=== PATIENT | male | born 1970 | race Caucasian/White ===

== ENCOUNTER 2023-04-04 18:54 | Inpatient (IN) ==
[2023-04-04] MEDS ORDERED: ONDANSETRON INJ 2 MG/ML 2 ML VIAL IV STA (19:03)
[2023-04-04 19:46] LABS: Basophils # (auto) 0.03 K/uL (0-0.2); Basophils % (auto) 0.2 %; Eosinophils # (auto) 0.03 K/uL (0-0.50); Eosinophils % (auto) 0.2 %; Hematocrit (blood only) 43.7 % (42.0-52.0); Hemoglobin 15.6 g/dl (14.0-18.0); Immature Granulocytes # (auto) 0.07 K/uL (0.01-0.20); Immature Granulocytes % (auto) 0.4 %; Lymphocytes % (auto) 12.2 %; Mean Corpuscular Hemoglobin 32.3 pg (25.0-34.0); Mean Corpuscular Hgb Conc 35.7 g/dL (32.0-36.0); Mean Corpuscular Volume 90.5 fL (80.0-100.0); Monocytes # (auto) 1.54 K/uL (0.11-0.59); Monocytes % (auto) 9.9 %; Neutrophils # (auto) 12.04 K/uL (1.40-6.50); Neutrophils % (auto) 77.1 %; Platelet Count 200 K/uL (130-400); Red Blood Count 4.83 M/uL (4.70-6.10); White Blood Count 15.61 K/ul (4.8-10.8)
[2023-04-04 20:07] LABS: Troponin I High Sensitivity 4.2 pg/ml (0-20)
[2023-04-04 20:08] LABS: Albumin Globulin Ratio 1.4 (0.9-2); Albumin Level 4.8 gm/dl (3.4-5.0); BUN Creatinine Ratio 13.8 (10-20); Calcium 9.3 mg/dl (8.6-10.3); Creatinine Clr Calc Pharmacy 119.3 ml/min; Est GFR (African American) 115.8 ml/min; Est GFR (Non-African American) 99.9 ml/min; Globulin 3.5 gm/dl (2.5-4.0); Magnesium 2.1 mg/dl (1.7-2.4); Potassium 3.3 mmol/L (3.5-5.1); Total Protein 8.3 gm/dl (6.0-8.3)
[2023-04-04 20:09] LABS: Partial Thromboplastin Time 28.4 Seconds (21.0-31.0); Prothrombin Time 10.6 Seconds (9.0-12.0)
[2023-04-04] MEDS ORDERED: HYDROmorphone INJ 0.5 MG/0.5 ML SYR IV STA (20:25)
[2023-04-04] MEDS ORDERED: SODIUM CHLORIDE 0.9% 1000ML 1,000 ML IV ONE (20:25)
--- NOTE | 2023-04-04 20:28 | XRay Report ---
XR chest 1V not portable CLINICAL HISTORY: Sepsis TECHNIQUE: Single frontal radiograph of the chest was obtained. Comparison: Comparison is made to chest radiograph 04/03/2023 FINDINGS: No lines and tubes are seen. The cardiomediastinal silhouette is normal. The lungs are clear. No evid ence of pleural effusion or pneumothorax. IMPRESSION: No acute abnormalities and in particular no radiographic evidence of pneumonia. ACT 112: Negative or not required by law. Electronically signed by: Chandler Lowe M.D. 04/04/2023 8:27 PM
--- NOTE | 2023-04-04 20:31 | Emergency Department Note ---
History of Present Illness General Chief complaint: Flu Like Symptoms Stated complaint: SWELLING TO NECK, FEVER, VOMITING Time Seen by Provider: 04/04/23 20:15 Source: patient, RN notes reviewed, old records reviewed and other (I did discuss the case with Dr. Comer who saw the patient yesterday) Mode of arrival: ambulatory Limitations: no limitations History of Present Illness Maximum Pain Intensity: 8 This patient is a 53-year-old male who returns to the ER after having fever increasing pain. He was seen yesterday and a full cardiac work-up and had right shoulder pain he had a CAT scan of the shoulder which suggested some bursitis. Is put on antibiotics. Today he has had a couple episodes of vomiting he feels okay in that regard now but now is more pain he is feels like his pain on the right side of the neck no shortness of breath no difficulty swallowing or speaking no rash or itching. He has no known tick bites. He was unable to hold his medications down. No headache or neck stiffness Home Medications Medication Instructions Recorded Confirmed Type aspirin 81 mg tablet,delayed 81 mg PO DAILY 10/01/19 04/04/23 History release fexofenadine 180 mg tablet 180 mg PO DAILY 10/01/19 04/04/23 History (Alana Allergy) multivitamin 1 tab PO DAILY 10/01/19 04/04/23 History omega 3-fsi-ckj-fish oil 1,000 mg 1 cap PO DAILY 10/01/19 04/04/23 History (120 mg-180 mg) capsule (Fish Oil) cephalexin 500 mg capsule 500 mg PO QID 9 days #36 caps 04/03/23 04/04/23 Rx hydrocodone 5 mg-acetaminophen 325 1 - 2 tab PO Q6H PRN pain #10 tabs 04/03/23 04/04/23 Rx mg tablet Allergies Allergy/AdvReac Type Severity Reaction Status Date / Time No Known Allergies Allergy NONE Unverified 04/03/23 15:43 Past Med/Surg History Surgical History H/O hernia repair Family History Other Cancer Diabetes Gallbladder disease Heart disease Hypertension Kidney disease Lung disease Multiple sclerosis Seizure Social History Smoking Status: Former smoker Second Hand Exposure: No; Do You Dip or Chew Tobacco: No; Tobacco Cessation Education Requested by Patient: No Hx Alcohol Use: Yes Hx Substance Use: Yes Last Used Substance: Days (ago) Last Used Substance Other:: 04/03/2023 Preferred Language: Kazakh Communication Ability: Effective Product Mgmt Dev Manager Required: No Beliefs That Will Affect Care: None Current Living Situation: Significant Other Other Information That Helps Us Care for You: No Feels Safe at Home: Yes Safety Concerns: Feels Safe At This Time Assistive Devices: None Review of Systems A total of 10 systems reviewed and were otherwise negative Physical Exam Vital Signs Vital Signs - 24 hr 04/04/23 18:59 04/04/23 20:02 04/04/23 20:35 Temperature 37.2 C 36.9 C Temperature Source Oral Oral Pulse Rate 109 H 86 Pulse Rate from SpO2 Sensor Pulse Rhythm Regular Pulse Strength Normal Respiratory Rate 20 17 Respiratory Effort / Characteristics Non-Labored Spontaneous Non-Labored Spontaneous Respiratory Depth Normal Normal Respiratory Pattern Regular Regular Blood Pressure 163/99 H Blood Pressure [Right Arm] 158/97 H Blood Pressure Mean 120 Blood Pressure Mean [Right Arm] 117 Blood Pressure Position Sitting Pulse Oximetry 96 97 Oxygen Delivery Method Room Air Room Air Sepsis Recent Fever Within 48 Hours Yes Sepsis New/Unexplained Change in Mental Status N/A Sepsis Action Taken by Nursing No Action Required 04/04/23 20:05 04/04/23 20:10 04/04/23 20:20 Temperature Temperature Source Pulse Rate 83 81 92 H Pulse Rate from SpO2 Sensor 84 81 89 Pulse Rhythm Pulse Strength Respiratory Rate 16 15 15 Respiratory Effort / Characteristics Respiratory Depth Respiratory Pattern Blood Pressure Blood Pressure [Right Arm] Blood Pressure Mean Blood Pressure Mean [Right Arm] Blood Pressure Position Pulse Oximetry 95 95 96 Oxygen Delivery Method Sepsis Recent Fever Within 48 Hours Sepsis New/Unexplained Change in Mental Status Sepsis Action Taken by Nursing 04/04/23 20:30 04/04/23 20:30 04/04/23 20:40 Temperature Temperature Source Pulse Rate 84 87 Pulse Rate from SpO2 Sensor 84 85 Pulse Rhythm Pulse Strength Respiratory Rate 19 23 Respiratory Effort / Characteristics Respiratory Depth Respiratory Pattern Blood Pressure 174/112 H Blood Pressure [Right Arm] Blood Pressure Mean 132 Blood Pressure Mean [Right Arm] Blood Pressure Position Pulse Oximetry 96 94 Oxygen Delivery Method Sepsis Recent Fever Within 48 Hours Sepsis New/Unexplained Change in Mental Status Sepsis Action Taken by Nursing 04/04/23 20:50 04/04/23 21:00 04/04/23 21:00 Temperature Temperature Source Pulse Rate 83 79 Pulse Rate from SpO2 Sensor 83 79 Pulse Rhythm Pulse Strength Respiratory Rate 14 20 Respiratory Effort / Characteristics Respiratory Depth Respiratory Pattern Blood Pressure 156/104 H Blood Pressure [Right Arm] Blood Pressure Mean 121 Blood Pressure Mean [Right Arm] Blood Pressure Position Pulse Oximetry 92 94 Oxygen Delivery Method Sepsis Recent Fever Within 48 Hours Sepsis New/Unexplained Change in Mental Status Sepsis Action Taken by Nursing 04/04/23 21:10 04/04/23 21:20 04/04/23 21:36 Temperature Temperature Source Pulse Rate 76 74 83 Pulse Rate from SpO2 Sensor 78 72 Pulse Rhythm Pulse Strength Respiratory Rate 20 13 23 Respiratory Effort / Characteristics Respiratory Depth Respiratory Pattern Blood Pressure Blood Pressure [Right Arm] Blood Pressure Mean Blood Pressure Mean [Right Arm] Blood Pressure Position Pulse Oximetry 95 95 Oxygen Delivery Method Sepsis Recent Fever Within 48 Hours Sepsis New/Unexplained Change in Mental Status Sepsis Action Taken by Nursing 04/04/23 21:40 04/04/23 21:50 04/04/23 22:00 Temperature Temperature Source Pulse Rate 72 75 Pulse Rate from SpO2 Sensor Pulse Rhythm Pulse Strength Respiratory Rate 20 17 Respiratory Effort / Characteristics Respiratory Depth Respiratory Pattern Blood Pressure 141/92 H Blood Pressure [Right Arm] Blood Pressure Mean 108 Blood Pressure Mean [Right Arm] Blood Pressure Position Pulse Oximetry Oxygen Delivery Method Sepsis Recent Fever Within 48 Hours Sepsis New/Unexplained Change in Mental Status Sepsis Action Taken by Nursing 04/04/23 22:00 04/04/23 22:10 04/04/23 22:20 Temperature Temperature Source Pulse Rate 73 70 81 Pulse Rate from SpO2 Sensor Pulse Rhythm Pulse Strength Respiratory Rate 16 16 16 Respiratory Effort / Characteristics Respiratory Depth Respiratory Pattern Blood Pressure Blood Pressure [Right Arm] Blood Pressure Mean Blood Pressure Mean [Right Arm] Blood Pressure Position Pulse Oximetry Oxygen Delivery Method Sepsis Recent Fever Within 48 Hours Sepsis New/Unexplained Change in Mental Status Sepsis Action Taken by Nursing 04/04/23 22:30 04/04/23 23:00 Temperature Temperature Source Pulse Rate 69 83 Pulse Rate from SpO2 Sensor Pulse Rhythm Pulse Strength Respiratory Rate 14 21 Respiratory Effort / Characteristics Respiratory Depth Respiratory Pattern Blood Pressure 138/87 158/100 H Blood Pressure [Right Arm] Blood Pressure Mean 104 119 Blood Pressure Mean [Right Arm] Blood Pressure Position Pulse Oximetry Oxygen Delivery Method Sepsis Recent Fever Within 48 Hours Sepsis New/Unexplained Change in Mental Status Sepsis Action Taken by Nursing General: Well developed well nourished middle-age male who appears in no acute distress, breathing comfortably on room air. Normal speech HEENT: Normal cephalic atraumatic. Pupils are equal round and reactive to light. Extraocular movements are intact. Oropharynx is pink with moist mucous membranes. No swelling of the mouth lips or tongue. No posterior oropharyngeal swelling. Neck: Supple with a midline trachea. No meningeal signs or stiffness, no JVD or bruits. No Stridor.. There is some mild swelling at the base of the neck more so on the right. No stridor. Chest: Clear to auscultation bilaterally. No wheezes or rhonchi. No increased work of breathing. Heart: Regular rate and rhythm without murmurs or gallops. Abdomen: Soft nontender, nondistended without rebound guarding or rigidity. Extremities: No cyanosis clubbing or edema. No calf tenderness or assymetry. He has significant pain with movement of the shoulder Spine/Back. Non tender to palpation. No CVA tenderness Skin: Good turgor without rashes. Neurologic exam: Cranial nerves two through 12 are intact. Motor and sensation are intact and symmetrical throughout. Course Administered Medications Potassium Chloride/Sodium Chloride (Normal Saline W/20 Meq Kcl) 20 meq in 1,000 mls @ 75 mls/hr IV .[id number] ONE; Protocol Stop: 04/05/23 11:42 Last Admin: 04/04/23 22:56 Dose: 75 mls/hr Documented By: MINDY Daptomycin 450 mg/ Syringe 9 mls @ 4.5 mls/min IV Q24H [facility]; Protocol Stop: 05/16/23 23:29 Last Admin: 04/04/23 23:57 Dose: 4.5 mls/min Documented By: INDIRA Ibuprofen (Ibuprofen 200 Mg Tab) 200 mg PO Q6H PRN PRN Reason: Mild Pain (Scale 1, 2, 3) Stop: 05/04/23 23:08 Last Admin: 04/05/23 00:30 Dose: 200 mg Documented By: INDIRA Oxycodone HCl (Oxycodone Hcl Ir 5 Mg Tab (Immediate Release)) 5 mg PO Q4H PRN PRN Reason: Pain Stop: 04/18/23 23:08 Last Admin: 04/05/23 00:06 Dose: 5 mg Documented By: DLLarry Discontinued Medications Hydromorphone HCl (Hydromorphone Inj 0.5 Mg/0.5 Ml Syr) 0.5 mg IV NOW STA Stop: 04/04/23 20:26 Last Admin: 04/04/23 20:44 Dose: 0.5 mg Documented By: MINDY Sodium Chloride (Nss 1000ml) 1,000 mls @ 999 mls/hr IV .Q1H1M ONE Stop: 04/04/23 21:25 Last Infusion: 04/04/23 21:46 Dose: 0 mls/hr Documented By: Admin: 04/04/23 20:44 Dose: 999 mls/hr Documented By: MINDY Ceftriaxone Sodium (Rocephin) 2,000 mg in 70 mls @ 140 mls/hr IV NOW STA Stop: 04/04/23 21:03 Last Infusion: 04/04/23 21:14 Dose: 0 mls/hr Documented By: Admin: 04/04/23 20:44 Dose: 140 mls/hr Documented By: MINDY Cefepime HCl (Maxipime) 2,000 mg in 20 mls @ 5 mls/min IV NOW STA; Protocol Stop: 04/04/23 23:09 Last Admin: 04/04/23 23:30 Dose: 5 mls/min Documented By: BRANDON Ioversol (Optiray 320 100ml) 94 ml IV ONCE ONE Stop: 04/04/23 21:48 Last Admin: 04/04/23 21:37 Dose: 94 ml Documented By: PAUL Ketorolac Tromethamine (Ketorolac Tromethamine 15 Mg/Ml Vial) 10 mg IV NOW ONE Stop: 04/04/23 20:51 Last Admin: 04/04/23 20:56 Dose: 10 mg Documented By: MINDY Ondansetron HCl (Ondansetron Inj 2 Mg/Ml 2 Ml Vial) 4 mg IV NOW STA Stop: 04/04/23 19:04 Last Admin: 04/04/23 19:23 Dose: 4 mg Documented By: NOEMY Potassium Chloride (Potassium Chloride Crtab 20 Meq Tabcr) 20 meq PO NOW STA Stop: 04/04/23 22:24 Last Admin: 04/04/23 22:56 Dose: 20 meq Documented By: MINDY Medical Decision Making Differential Diagnosis Sepsis, infection, electrolyte or metabolic abnormality, airway compromise, abscess, tickborne illness Medical Records Attestation: I reviewed the patient's medical records. Home Medications Current Medication List: was personally reviewed by me Laboratory Data 04/04/23 19:11 04/04/23 19:11 Lab Results 04/04/23 04/04/23 04/04/23 Range/Units 19:11 19:11 19:11 WBC 15.61 H (4.8-10.8) K/ul RBC 4.83 (4.70-6.10) M/uL Hgb 15.6 (14.0-18.0) g/dl Hct 43.7 (42.0-52.0) % MCV 90.5 (80.0-100.0) fL MCH 32.3 (25.0-34.0) pg MCHC 35.7 (32.0-36.0) g/dL RDW Std Deviation 43.0 (36.4-46.3) fL RDW Coeff of Amol 13.0 (11.5-14.5) % Plt Count 200 (130-400) K/uL MPV 10.0 (9.4-12.4) fL Immature Gran % (Auto) 0.4 % Neut % (Auto) 77.1 % Lymph % (Auto) 12.2 % [place] % (Auto) 9.9 % Eos % (Auto) 0.2 % Baso % (Auto) 0.2 % Neut # (Auto) 12.04 H (1.40-6.50) K/uL Lymph # (Auto) 1.90 (1.2-3.4) K/uL [place] # (Auto) 1.54 H (0.11-0.59) K/uL Eos # (Auto) 0.03 (0-0.50) K/uL Baso # (Auto) 0.03 (0-0.2) K/uL Immature Gran # (Auto) 0.07 (0.01-0.20) K/uL PT 10.6 (9.0-12.0) Seconds INR 1.0 (0.9-1.1) APTT 28.4 (21.0-31.0) Seconds PTT Ratio 1.0 Sodium (136-145) mmol/L Potassium (3.5-5.1) mmol/L Chloride (98-107) mmol/L Carbon Dioxide (21-32) mmol/L Anion Gap (3-11) BUN (6-23) mg/dl Creatinine (0.6-1.4) mg/dl Est Cr Clr Drug Dosing ml/min Est GFR ( Amer) ml/min Est GFR (Non-Af Amer) ml/min BUN/Creatinine Ratio (10-20) Glucose (70-99(Fasting)) mg/dl Lactate 1.3 (0.4-2.0) mmol/L Calcium (8.6-10.3) mg/dl Magnesium (1.7-2.4) mg/dl Total Bilirubin (0.2-1.0) mg/dl AST (13-39) U/L ALT (7-52) U/L Alkaline Phosphatase (34-104) U/L Troponin I High Sens (0-20) pg/ml Total Protein (6.0-8.3) gm/dl Albumin (3.4-5.0) gm/dl Globulin (2.5-4.0) gm/dl Albumin/Globulin Ratio (0.9-2) Procalcitonin (0-0.5) ng/ml Lyme Disease IgG Ab (Negative) Lyme Disease IgM Ab (Negative) Group A Strep (PCR) (NotDetected) 04/04/23 04/04/23 04/04/23 Range/Units 19:11 19:11 19:11 WBC (4.8-10.8) K/ul RBC (4.70-6.10) M/uL Hgb (14.0-18.0) g/dl Hct (42.0-52.0) % MCV (80.0-100.0) fL MCH (25.0-34.0) pg MCHC (32.0-36.0) g/dL RDW Std Deviation (36.4-46.3) fL RDW Coeff of Amol (11.5-14.5) % Plt Count (130-400) K/uL MPV (9.4-12.4) fL Immature Gran % (Auto) % Neut % (Auto) % Lymph % (Auto) % [place] % (Auto) % Eos % (Auto) % Baso % (Auto) % Neut # (Auto) (1.40-6.50) K/uL Lymph # (Auto) (1.2-3.4) K/uL [place] # (Auto) (0.11-0.59) K/uL Eos # (Auto) (0-0.50) K/uL Baso # (Auto) (0-0.2) K/uL Immature Gran # (Auto) (0.01-0.20) K/uL PT (9.0-12.0) Seconds INR (0.9-1.1) APTT (21.0-31.0) Seconds PTT Ratio Sodium 137 (136-145) mmol/L Potassium 3.3 L (3.5-5.1) mmol/L Chloride 104 (98-107) mmol/L Carbon Dioxide 22 (21-32) mmol/L Anion Gap 11 (3-11) BUN 12 (6-23) mg/dl Creatinine 0.87 (0.6-1.4) mg/dl Est Cr Clr Drug Dosing 119.3 ml/min Est GFR ( Amer) 115.8 ml/min Est GFR (Non-Af Amer) 99.9 ml/min BUN/Creatinine Ratio 13.8 (10-20) Glucose 131 H (70-99(Fasting)) mg/dl Lactate (0.4-2.0) mmol/L Calcium 9.3 (8.6-10.3) mg/dl Magnesium 2.1 (1.7-2.4) mg/dl Total Bilirubin 1.0 D (0.2-1.0) mg/dl AST 13 (13-39) U/L ALT 16 (7-52) U/L Alkaline Phosphatase 64 (34-104) U/L Troponin I High Sens 4.2 (0-20) pg/ml Total Protein 8.3 (6.0-8.3) gm/dl Albumin 4.8 (3.4-5.0) gm/dl Globulin 3.5 (2.5-4.0) gm/dl Albumin/Globulin Ratio 1.4 (0.9-2) Procalcitonin 0.05 (0-0.5) ng/ml Lyme Disease IgG Ab Negative (Negative) Lyme Disease IgM Ab Negative (Negative) Group A Strep (PCR) (NotDetected) 04/04/23 Range/Units 19:14 WBC (4.8-10.8) K/ul RBC (4.70-6.10) M/uL Hgb (14.0-18.0) g/dl Hct (42.0-52.0) % MCV (80.0-100.0) fL MCH (25.0-34.0) pg MCHC (32.0-36.0) g/dL RDW Std Deviation (36.4-46.3) fL RDW Coeff of Amol (11.5-14.5) % Plt Count (130-400) K/uL MPV (9.4-12.4) fL Immature Gran % (Auto) % Neut % (Auto) % Lymph % (Auto) % [place] % (Auto) % Eos % (Auto) % Baso % (Auto) % Neut # (Auto) (1.40-6.50) K/uL Lymph # (Auto) (1.2-3.4) K/uL [place] # (Auto) (0.11-0.59) K/uL Eos # (Auto) (0-0.50) K/uL Baso # (Auto) (0-0.2) K/uL Immature Gran # (Auto) (0.01-0.20) K/uL PT (9.0-12.0) Seconds INR (0.9-1.1) APTT (21.0-31.0) Seconds PTT Ratio Sodium (136-145) mmol/L Potassium (3.5-5.1) mmol/L Chloride (98-107) mmol/L Carbon Dioxide (21-32) mmol/L Anion Gap (3-11) BUN (6-23) mg/dl Creatinine (0.6-1.4) mg/dl Est Cr Clr Drug Dosing ml/min Est GFR ( Amer) ml/min Est GFR (Non-Af Amer) ml/min BUN/Creatinine Ratio (10-20) Glucose (70-99(Fasting)) mg/dl Lactate (0.4-2.0) mmol/L Calcium (8.6-10.3) mg/dl Magnesium (1.7-2.4) mg/dl Total Bilirubin (0.2-1.0) mg/dl AST (13-39) U/L ALT (7-52) U/L Alkaline Phosphatase (34-104) U/L Troponin I High Sens (0-20) pg/ml Total Protein (6.0-8.3) gm/dl Albumin (3.4-5.0) gm/dl Globulin (2.5-4.0) gm/dl Albumin/Globulin Ratio (0.9-2) Procalcitonin (0-0.5) ng/ml Lyme Disease IgG Ab (Negative) Lyme Disease IgM Ab (Negative) Group A Strep (PCR) NOT DETECTED (NotDetected) Imaging Data Attestation: I personally reviewed and interpreted this imaging study as follows: My Impression: Chest x-rayno acute infiltrate, failure, pneumothorax seen. Radiologist's Impression: Chest X-Ray 04/04/23 19:03 XR chest 1V not portable CLINICAL HISTORY: Sepsis TECHNIQUE: Single frontal radiograph of the chest was obtained. Comparison: Comparison is made to chest radiograph 04/03/2023 FINDINGS: No lines and tubes are seen. The cardiomediastinal silhouette is normal. The lungs are clear. No evidence of pleural effusion or pneumothorax. IMPRESSION: No acute abnormalities and in particular no radiographic evidence of pneumonia. ACT 112: Negative or not required by law. Electronically signed by: Chandler Lowe M.D. 04/04/2023 8:27 PM Soft Tissue Neck CT 04/04/23 20:25 Exam(s): CT NECK With Contrast IV Amt: 94 ml [id number] EXAM: CT Neck With Intravenous Contrast CLINICAL HISTORY: Reason for exam: rt sided swelling. TECHNIQUE: Axial computed tomography images of the neck with intravenous contrast. CTDI is 19.54 mGy and DLP is 568.28 mGy-cm. Automated exposure control was utilized for the study. A dose lowering technique was utilized adhering to the principles of ALARA. CONTRAST: Patient received 94 ml [id number] of IV contrast COMPARISON: None. FINDINGS: Oropharynx: Unremarkable. No significant tonsillar enlargement. No peritonsillar abscess. Hypopharynx: Unremarkable. Larynx: Unremarkable. Normal epiglottis. Trachea: Unremarkable. Retropharyngeal space: Unremarkable. Submandibular/parotid glands: Mildly enlarged submandibular glands. No salivary gland calculi are seen. Thyroid: Unremarkable. No enlarged or calcified nodules. Bones/joints: Degenerative change in the spine. No high-grade spinal canal stenosis. No acute fracture. Soft tissues: Unremarkable. Vasculature: No acute findings. Lymph nodes: Cervical lymphadenopathy. Sinuses: Mild mucosal thickening in the ethmoid sinuses. Lung apices: Unremarkable as visualized. IMPRESSION: 1. Mildly enlarged submandibular glands. This may represent infectious or inflammatory sialadenitis. Clinical correlation is recommended. 2. Cervical lymphadenopathy. This may be reactive. Bella metastasis and lymphoproliferative disease are not excluded. Clinical correlation is recommended. Electronically signed by: Maykel John MD 04/04/23 22:04 PM ECG Data Attestation: I personally reviewed and interpreted this ECG as follows: Indication: + chest pain Rate (beats per minute): 102 Rhythm: + sinus tachycardia ECG Intervals/blocks: + Right Bundle branch block, + Normal QT and + Normal [place] ECG [place]: + Normal ECG ST segments: + Normal ST segments ECG Findings: no PACs or no PVCs Comparison ECG Date: from (04/03/23) Change: no significant change MDM Narrative This patient comes in described above he had a full work-up yesterday for right shoulder pain was thought to have bursitis he has increasing pain he is also nausea vomiting he has some swelling at the base of his neck today as well. He may have a low-grade temperature. IV access was established and he was hydrated with IV normal sinus white count is now 15. I did give him Dilaudid 0.5 mg IV for pain. He is not nauseated at present. He has no significant electrolyte or metabolic abnormalities. I did add tickborne illness labs as well as COVID testing and CT of the neck. He was reassessed frequently. He also received IV Toradol. He received Rocephin 2 g IV he is feel a lot better after this. His CT of his neck shows some possible submandibular sialoadenitis and cervical lymph nodes. I do think he needs to be admitted/observed for pain management antibiotics and observation. He may need further work-up to get to the etiology of his symptoms. I have consulted Dr. Hoang and discussed at length with him and he saw the patient in ER for these measures Continuous cardiac monitoring: Orders were placed in EMR for continuous cardiac monitoring: Upon my evaluation patient noted to be in normal sinus rhythm with a rate of 85. Impression & Plan Sialadenitis, Acute pain of right shoulder, Adenopathy, cervical, Elevated WBC count Discharge Plan Visit Data Chief Complaint: Flu Like Symptoms Stated Complaint: SWELLING TO NECK, FEVER, VOMITING ED Provider: Devon Jennings Discharge Problem: Sialadenitis, Acute pain of right shoulder, Adenopathy, cervical, Elevated WBC count Patient Disposition: Admitted As Inpatient Discharge Instructions Interventions: ED Discharge Assessment Last Done: 04/04/23 23:43
[2023-04-04] MEDS ORDERED: cefTRIAXone SODIUM 2,000 MG/70 ML BAG IV STA (20:34)
[2023-04-04] MEDS ORDERED: KETOROLAC TROMETHAMINE 15 MG/ML VIAL IV ONE (20:50)
[2023-04-04 21:47] LABS: Lyme Ab IgG w/WB Rflx Negative (Negative); Lyme Ab IgM w/WB Rflx Negative (Negative)
[2023-04-04] MEDS ORDERED: OPTIRAY 320 100ml IV ONE (21:47)
--- NOTE | 2023-04-04 22:04 | CT Scan Report ---
Exam(s): CT NECK With Contrast IV Amt: 94 ml EXAM: CT Neck With Intravenous Contrast CLINICAL HISTORY: Reason for exam: rt sided swelling. TECHNIQUE: Axial computed tomography images of the neck with intravenous contrast. CTDI is 19.54 mGy and DLP is 568.28 mGy-cm. Automated exposure control was utilized for the study. A dose lowering technique was utilized adhering to the principles of ALARA. CONTRAST: Patient received 94 ml [id number] of IV contrast COMPARISON: None. FINDINGS: Oropharynx: Unremarkable. No significant tonsillar enlargement. No peritonsillar abscess. Hypopharynx: Unremarkable. Larynx: Unremarkable. Normal epiglottis. Trachea: Unremarkable. Retropharyngeal space: Unremarkable. Submandibular/parotid glands: Mildly enlarged submandibular glands. No salivary gland calculi are seen. Thyroid: Unremarkable. No enlarged or calcified nodules. Bones/joints: Degenerative change in the spine. No high-grade spinal canal stenosis. No acute fracture. Soft tissues: Unremarkable. Vasculature: No acute findings. Lymph nodes: Cervical lymphadenopathy. Sinuses: Mild mucosal thickening in the ethmoid sinuses. Lung apices: Unremarkable as visualized. IMPRESSION: 1. Mildly enlarged submandibular glands. This may represent infectious or inflammatory sialadenitis. Clinical correlation is recommended. 2. Cervical lymphadenopathy. This may be reactive. [place] metastasis and lymphoproliferative disease are not excluded. Clinical correlation is recommended. Electronically signed by: Maykel John MD 04/04/23 22:04 PM
[2023-04-04] MEDS ORDERED: POTASSIUM CHLORIDE CRTAB 20 MEQ TABCR PO STA (22:23)
[2023-04-04] MEDS ORDERED: NSS + 20MEQ KCL 20 MEQ/1,000 ML BAG IV ONE (22:23)
--- NOTE | 2023-04-04 22:59 | History & Physical Report ---
Date of Service April 04, 2023 Assessment & Plan (1) Sepsis: Plan: Possible sources R shoulder joint, failed outpatient treatment Sialadenitis with reactive adenopathy (unclear if related to shoulder pathology) Situational hypertension, possible chronic BP elevation given cardiomegaly on CXR 2 days ago. hyperlipidemia, not on maintenance medications ocular hypertension as per records CRVO on aspirin Hyperglycemia rule out DM Hypokalemia secondary to emesis Medical telemetry CS, Daptomycin, Cefepime Orthopedics consult Re: Right shoulder effusion Increase fluid intake, ENT consult if sialadenitis/adenopathy does not respond to antibiotic Rx Analgesia, initiate lisinopril if with persistent BP deviation Check hemoglobin A1c replace potassium DVT prophylaxis. SCDs for now Re: Possible procedure Recommend pharmacologic anticoagulation with Lovenox 40 mg subcutaneous daily if no contraindication pending Orthopedics evaluation. Full code Text document was generated using [employer] voice recognition software. It may contain grammatical or spelling errors. Kindly contact undersigned for clarification of any documentation item in question. History of Present Illness Chief Complaint: Worsening right shoulder pain, vomiting, new neck pain Primary Care Provider: Evelio Pickard MD History obtained from patient and records. Medical history significant for hyperlipidemia, ocular hypertension as per records, CRVO on aspirin, 2 days ago, patient woke up with right shoulder pain going to his neck and chest. No recollection of recent trauma. Denies IVDU. CT right shoulder showed mild subacromial/subdeltoid bursitis versus rotator cuff injury. Patient discharged home on Keflex course for possible infection. Vicodin prescribed for pain. Worsening pain at home despite compliance with medications. Low-grade fever. Patient noted painful neck swelling followed by emesis. Denies tooth ache or sore throat symptoms. Denies headache, chest pain, SOB. No unusual weight loss or night sweats. No prior episodes. Patient returned to ER. IV ceftriaxone administered at the ER. Medical History as above Surgical History : Hernia repair Family History : DM, heart disease, stroke, MS Personal/Social history : Non-smoker, occasional EtOH intake, [employer] employee/accounts department Allergies Allergy/AdvReac Type Severity Reaction Status Date / Time No Known Allergies Allergy NONE Unverified 04/03/23 15:43 Home Medications Medication Instructions Recorded Confirmed Type aspirin 81 mg tablet,delayed 81 mg PO DAILY 10/01/19 04/04/23 History release fexofenadine 180 mg tablet 180 mg PO DAILY 10/01/19 04/04/23 History (Alana Allergy) multivitamin 1 tab PO DAILY 10/01/19 04/04/23 History omega 9-ebv-spm-fish oil 1,000 mg 1 cap PO DAILY 10/01/19 04/04/23 History (120 mg-180 mg) capsule (Fish Oil) cephalexin 500 mg capsule 500 mg PO QID 9 days #36 caps 04/03/23 04/04/23 Rx hydrocodone 5 mg-acetaminophen 325 1 - 2 tab PO Q6H PRN pain #10 tabs 04/03/23 04/04/23 Rx mg tablet Past Med/Surg History Surgical History H/O hernia repair Family History Other Cancer Diabetes Gallbladder disease Heart disease Hypertension Kidney disease Lung disease Multiple sclerosis Seizure Social History Smoking Status: Former smoker Second Hand Exposure: No; Do You Dip or Chew Tobacco: No; Tobacco Cessation Education Requested by Patient: No Hx Alcohol Use: Yes Hx Substance Use: Yes Last Used Substance: Days (ago) Last Used Substance Other:: 04/03/2023 Preferred Language: Vietnamese Communication Ability: Effective 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 Beliefs That Will Affect Care: None Current Living Situation: Significant Other Other Information That Helps Us Care for You: No Feels Safe at Home: Yes Safety Concerns: Feels Safe At This Time Assistive Devices: None Review of Systems Review of Systems: As per HPI, all other systems reviewed and negative Physical Exam Physical Exam: GENERAL: Slightly uncomfortable, no respiratory distress, no stridor SKIN: Normal color, warm HEENT: Bespectacled, [place] palpebral conjunctivae, no ptosis, moist buccal mucosa NECK : Supple, palpable cervical adenopathy with tenderness CHEST : CTA, no tenderness HEART : RRR, no obvious murmurs ABDOMEN: Some distention, nontender EXTREMITIES : No LE swelling/tenderness, right shoulder tenderness NEUROLOGIC : Coherent, no facial asymmetry, no other gross focality Results & Data Results & Data Vital Signs (Past 12 Hours) Vital Signs Temp Pulse Resp BP BP Pulse Ox O2 Del Method 04/04/23 22:20 81 16 04/04/23 22:10 70 16 04/04/23 22:00 73 16 04/04/23 22:00 141/92 H 04/04/23 21:50 75 17 04/04/23 21:40 72 20 04/04/23 21:36 83 23 04/04/23 21:20 74 13 95 04/04/23 21:10 76 20 95 04/04/23 21:00 156/104 H 04/04/23 21:00 79 20 94 04/04/23 20:50 83 14 92 04/04/23 20:40 87 23 94 04/04/23 20:30 84 19 96 04/04/23 20:30 174/112 H 04/04/23 20:20 92 H 15 96 04/04/23 20:10 81 15 95 04/04/23 20:05 83 16 95 04/04/23 20:35 86 04/04/23 20:02 36.9 C 17 158/97 H 97 Room Air 04/04/23 18:59 37.2 C 109 H 20 163/99 H 96 Room Air Laboratory Results Laboratory Results WBC 15.61 K/ul (4.8-10.8) H 04/04/23 19:11 RBC 4.83 M/uL (4.70-6.10) 04/04/23 19:11 Hgb 15.6 g/dl (14.0-18.0) 04/04/23 19:11 Hct 43.7 % (42.0-52.0) 04/04/23 19:11 MCV 90.5 fL (80.0-100.0) 04/04/23 19:11 MCH 32.3 pg (25.0-34.0) 04/04/23 19:11 MCHC 35.7 g/dL (32.0-36.0) 04/04/23 19:11 RDW Std Deviation 43.0 fL (36.4-46.3) 04/04/23 19:11 RDW Coeff of Amol 13.0 % (11.5-14.5) 04/04/23 19:11 Plt Count 200 K/uL (130-400) 04/04/23 19:11 MPV 10.0 fL (9.4-12.4) 04/04/23 19:11 Immature Gran % (Auto) 0.4 % 04/04/23 19:11 Neut % (Auto) 77.1 % 04/04/23 19:11 Lymph % (Auto) 12.2 % 04/04/23 19:11 [place] % (Auto) 9.9 % 04/04/23 19:11 Eos % (Auto) 0.2 % 04/04/23 19:11 Baso % (Auto) 0.2 % 04/04/23 19:11 Neut # (Auto) 12.04 K/uL (1.40-6.50) H 04/04/23 19:11 Lymph # (Auto) 1.90 K/uL (1.2-3.4) 04/04/23 19:11 [place] # (Auto) 1.54 K/uL (0.11-0.59) H 04/04/23 19:11 Eos # (Auto) 0.03 K/uL (0-0.50) 04/04/23 19:11 Baso # (Auto) 0.03 K/uL (0-0.2) 04/04/23 19:11 Immature Gran # (Auto) 0.07 K/uL (0.01-0.20) 04/04/23 19:11 PT 10.6 Seconds (9.0-12.0) 04/04/23 19:11 INR 1.0 (0.9-1.1) 04/04/23 19:11 APTT 28.4 Seconds (21.0-31.0) 04/04/23 19:11 PTT Ratio 1.0 04/04/23 19:11 Sodium 137 mmol/L (136-145) 04/04/23 19:11 Potassium 3.3 mmol/L (3.5-5.1) L 04/04/23 19:11 Chloride 104 mmol/L (98-107) 04/04/23 19:11 Carbon Dioxide 22 mmol/L (21-32) 04/04/23 19:11 Anion Gap 11 (3-11) 04/04/23 19:11 BUN 12 mg/dl (6-23) 04/04/23 19:11 Creatinine 0.87 mg/dl (0.6-1.4) 04/04/23 19:11 Est Cr Clr Drug Dosing 119.3 ml/min 04/04/23 19:11 Est GFR ( Amer) 115.8 ml/min 04/04/23 19:11 Est GFR (Non-Af Amer) 99.9 ml/min 04/04/23 19:11 BUN/Creatinine Ratio 13.8 (10-20) 04/04/23 19:11 Glucose 131 mg/dl (70-99(Fasting)) H 04/04/23 19:11 Lactate 1.3 mmol/L (0.4-2.0) 04/04/23 19:11 Calcium 9.3 mg/dl (8.6-10.3) 04/04/23 19:11 Magnesium 2.1 mg/dl (1.7-2.4) 04/04/23 19:11 Total Bilirubin 1.0 mg/dl (0.2-1.0) D 04/04/23 19:11 AST 13 U/L (13-39) 04/04/23 19:11 ALT 16 U/L (7-52) 04/04/23 19:11 Alkaline Phosphatase 64 U/L (34-104) 04/04/23 19:11 Troponin I High Sens 4.2 pg/ml (0-20) 04/04/23 19:11 Total Protein 8.3 gm/dl (6.0-8.3) 04/04/23 19:11 Albumin 4.8 gm/dl (3.4-5.0) 04/04/23 19:11 Globulin 3.5 gm/dl (2.5-4.0) 04/04/23 19:11 Albumin/Globulin Ratio 1.4 (0.9-2) 04/04/23 19:11 Procalcitonin 0.05 ng/ml (0-0.5) 04/04/23 19:11 Lyme Disease IgG Ab Negative (Negative) 04/04/23 19:11 Lyme Disease IgM Ab Negative (Negative) 04/04/23 19:11 Group A Strep (PCR) NOT DETECTED (NotDetected) 04/04/23 19:14 Impressions Chest X-Ray 04/04/23 19:03 XR chest 1V not portable CLINICAL HISTORY: Sepsis TECHNIQUE: Single frontal radiograph of the chest was obtained. Comparison: Comparison is made to chest radiograph 04/03/2023 FINDINGS: No lines and tubes are seen. The cardiomediastinal silhouette is normal. The lungs are clear. No evidence of pleural effusion or pneumothorax. IMPRESSION: No acute abnormalities and in particular no radiographic evidence of pneumonia. ACT 112: Negative or not required by law. Electronically signed by: Chandler Lowe M.D. 04/04/2023 8:[address] PM [address] Tissue [address] 04/04/23 20:25 Exam(s): CT NECK With Contrast IV Amt: 94 ml [id number] EXAM: CT Neck With Intravenous Contrast CLINICAL HISTORY: Reason for exam: rt sided swelling. TECHNIQUE: Axial computed tomography images of the neck with intravenous contrast. CTDI is 19.54 mGy and DLP is 568.28 mGy-cm. Automated exposure control was utilized for the study. A dose lowering technique was utilized adhering to the principles of ALARA. CONTRAST: Patient received 94 ml [id number] of IV contrast COMPARISON: None. FINDINGS: Oropharynx: Unremarkable. No significant tonsillar enlargement. No peritonsillar abscess. Hypopharynx: Unremarkable. Larynx: Unremarkable. Normal epiglottis. Trachea: Unremarkable. Retropharyngeal space: Unremarkable. Submandibular/parotid glands: Mildly enlarged submandibular glands. No salivary gland calculi are seen. Thyroid: Unremarkable. No enlarged or calcified nodules. Bones/joints: Degenerative change in the spine. No high-grade spinal canal stenosis. No acute fracture. Soft tissues: Unremarkable. Vasculature: No acute findings. Lymph nodes: Cervical lymphadenopathy. Sinuses: Mild mucosal thickening in the ethmoid sinuses. Lung apices: Unremarkable as visualized. IMPRESSION: 1. Mildly enlarged submandibular glands. This may represent infectious or inflammatory sialadenitis. Clinical correlation is recommended. 2. Cervical lymphadenopathy. This may be reactive. Bella metastasis and lymphoproliferative disease are not excluded. Clinical correlation is recommended. Electronically signed by: Maykel John MD 04/04/23 22:04 PM Diagnostic Findings EKG as per my interpretation : Rate 105, sinus tachycardia, RAD, LPFB, inferior infarct, no ischemia
[2023-04-04] MEDS ORDERED: CEFEPIME 2,000 MG/20 ML VIAL IV STA (23:06)
[2023-04-04] MEDS ORDERED: IBUPROFEN 200 MG TAB PO PRN (23:09)
[2023-04-04] MEDS ORDERED: PROMETHAZINE HCL 12.5 MG in SODIUM CHLORIDE 0.9% 50 ML IV PRN (23:09)
[2023-04-04] MEDS ORDERED: LORazepam 0.5 MG TAB PO PRN (23:09)
[2023-04-04] MEDS: DAPTOmycin 450 MG in SYRINGE 0 ML IV SCH (23:57)
[2023-04-05] MEDS: oxyCODONE HCL IR 5 MG TAB (IMMEDIATE RELEASE) PO PRN ×4 (00:06→20:20)
[2023-04-05] MEDS: KETOROLAC TROMETHAMINE 15 MG/ML VIAL IV PRN ×4 (03:50→22:45)
[2023-04-05 04:02] LABS: Appearance Urine Clear (Clear); Bilirubin Urine Negative (Negative); Blood Urine Negative (Negative); Color Urine Yellow; Glucose Urine UA Negative (Negative); Ketones Urine Negative (Negative); Leukocyte Esterase Urine Negative (Negative); Nitrite Urine Negative (Negative); Protein Urine Negative (Negative); Specific Gravity Urine 1.027 (1.000-1.030); Urobilinogen Urine Negative (Negative)
[2023-04-05] MEDS: lisinopril 2.5 MG TAB PO SCH (04:29)
[2023-04-05 04:40] LABS: Amphetamines+Metham, Urine Neg (Neg); Barbiturates, Urine Neg (Neg); Benzodiazepine, Urine Neg (Neg); Cocaine, Urine Neg (Neg); MDMA (Ecstacy), Urine Neg (Neg); Methadone, Urine Neg (Neg); Opiate, Urine Pos (Neg); Phencyclidine, Urine Neg (Neg)
[2023-04-05 06:10] LABS: Basophils # (auto) 0.02 K/uL (0-0.2); Basophils % (auto) 0.1 %; Eosinophils # (auto) 0.05 K/uL (0-0.50); Eosinophils % (auto) 0.4 %; Hematocrit (blood only) 38.2 % (42.0-52.0); Hemoglobin 13.5 g/dl (14.0-18.0); Immature Granulocytes # (auto) 0.05 K/uL (0.01-0.20); Immature Granulocytes % (auto) 0.4 %; Lymphocytes # (auto) 2.47 K/uL (1.2-3.4); Lymphocytes % (auto) 17.9 %; Mean Corpuscular Hemoglobin 32.4 pg (25.0-34.0); Mean Corpuscular Hgb Conc 35.3 g/dL (32.0-36.0); Mean Corpuscular Volume 91.6 fL (80.0-100.0); Mean Platelet Volume 9.9 fL (9.4-12.4); Monocytes # (auto) 1.71 K/uL (0.11-0.59); Monocytes % (auto) 12.4 %; Neutrophils # (auto) 9.47 K/uL (1.40-6.50); Neutrophils % (auto) 68.8 %; Platelet Count 173 K/uL (130-400); RDW Coefficient of Variation 13.2 % (11.5-14.5); RDW Standard Deviation 43.8 fL (36.4-46.3); Red Blood Count 4.17 M/uL (4.70-6.10); White Blood Count 13.77 K/ul (4.8-10.8)
[2023-04-05 06:25] LABS: Calcium 8.6 mg/dl (8.6-10.3); Creatinine Clr Calc Pharmacy 126.4 ml/min; Est GFR (African American) 118.1 ml/min; Est GFR (Non-African American) 101.9 ml/min; Potassium 3.6 mmol/L (3.5-5.1)
[2023-04-05] MEDS: CEFEPIME 2,000 MG in SYRINGE 0 ML IV SCH ×3 (08:16→23:00)
[2023-04-05] MEDS: ACETAMINOPHEN 325 MG TAB PO PRN ×2 (08:16→19:13)
[2023-04-05] MEDS: MULTIVITAMIN TAB PO SCH (08:16)
[2023-04-05] MEDS: ASPIRIN 81 MG ECTAB PO SCH (08:16)
[2023-04-05 08:28] LABS: Estimated Average Glucose 117 mg/dl; Hemoglobin A1C 5.7 % (4.5-5.6)
--- NOTE | 2023-04-05 13:02 | Electrocardiogram Report ---
Test Reason : Blood Pressure : / mmHG Vent. Rate : 102 BPM Atrial Rate : 102 BPM P-R Int : 168 ms QRS Dur : 088 ms QT Int : 342 ms P-R-T Axes : 000 143 -07 degrees QTc Int : 445 ms Sinus tachycardia Left posterior fascicular block Abnormal ECG When compared with ECG of 03-APR-2023 14:22, Vent. rate has increased BY 45 BPM Left posterior fascicular block is now Present QT has lengthened Confirmed by Fuad Urias ([id number]) on 04/05/2023 1:02:00 PM Referred By: REFERRED SELF Confirmed By:Fuad Urias
--- NOTE | 2023-04-05 13:58 | Orthopedic Consultation ---
Date of Consultation April 05, 2023 Assessment & Plan (1) Sepsis: (2) Acute pain of right shoulder: Plan Right shoulder pain: -Aspiration was attempted at the bedside- this was a dry tap. -Will order CT-guided aspiration of shoulder. Aspirated fluid will be sent for culture and sensitivity, Gram stain, cell count with differential, and crystal analysis. -Sed rate and CRP ordered. -DVT prophylaxis managed by primary team at this time. -Activity as tolerated right shoulder. History of Present Illness Attending Physician: Ross Valle MD History of Present Illness 3 days ago, patient woke up with right shoulder pain going to his neck and chest. No recollection of recent trauma. CT right shoulder showed mild subacromial/subdeltoid bursitis versus rotator cuff injury. Patient discharged home on Keflex course for possible infection. Vicodin prescribed for pain. Worsening pain at home despite compliance with medications. Low-grade fever. Patient noted painful neck swelling followed by emesis. Denies tooth ache or sore throat symptoms. Denies headache, chest pain, SOB. No unusual weight loss or night sweats. No prior episodes. Due to patient's continued symptoms he returned to the ER. He was given IV ceftriaxone in the ER. Patient was admitted for further evaluation and work-up. He is currently taking daptomycin and cefepime. Orthopedics were consulted for further evaluation and work-up of shoulder. WBC count is 13.77 today. Patient states he is having continued pain in the right shoulder and radiates to his neck. He denies any injury. He states ice has been helping. His pain is controlled with toradol, acetaminophen, and oxycodone. He states he has been having fever and chills. Currently afebrile. Allergies Allergy/AdvReac Type Severity Reaction Status Date / Time No Known Allergies Allergy NONE Unverified 04/03/23 15:43 Home Medications Medication Instructions Recorded Confirmed Type aspirin 81 mg tablet,delayed 81 mg PO DAILY 10/01/19 04/04/23 History release fexofenadine 180 mg tablet 180 mg PO DAILY 10/01/19 04/04/23 History (Alana Allergy) multivitamin 1 tab PO DAILY 10/01/19 04/04/23 History omega 4-nnk-huc-fish oil 1,000 mg 1 cap PO DAILY 10/01/19 04/04/23 History (120 mg-180 mg) capsule (Fish Oil) cephalexin 500 mg capsule 500 mg PO QID 9 days #36 caps 04/03/23 04/04/23 Rx hydrocodone 5 mg-acetaminophen 325 1 - 2 tab PO Q6H PRN pain #10 tabs 04/03/23 04/04/23 Rx mg tablet Patient History Surgical History H/O hernia repair Family History Other Cancer Diabetes Gallbladder disease Heart disease Hypertension Kidney disease Lung disease Multiple sclerosis Seizure Social History Smoking Status: Former smoker Second Hand Exposure: No; Do You Dip or Chew Tobacco: No; Tobacco Cessation Education Requested by Patient: No Hx Alcohol Use: Yes Hx Substance Use: Yes Last Used Substance: Days (ago) Last Used Substance Other:: 04/03/2023 Preferred Language: Indian Communication Ability: Effective Director Of Academic Support Required: No Beliefs That Will Affect Care: None Current Living Situation: Significant Other Other Information That Helps Us Care for You: No Feels Safe at Home: Yes Safety Concerns: Feels Safe At This Time Assistive Devices: None Physical Exam Physical Exam: Patient was examined at 1300 on 04/05/2023. He is laying in bed. He states he is unable to sit up due to pain. No erythema or drainage noted. Tenderness to palpation noted over the anterior aspect of the right shoulder. Difficulty with ROM due to pain. Decreased strength on exam. Increased pain with Neer's and Huizar. +2/4 radial and ulnar pulses bilaterally. Results & Data Vital Signs (Past 12 Hours) Vital Signs Temp Pulse Pulse Resp BP Pulse Ox O2 Del Method 04/05/23 11:41 36.9 C 80 18 135/81 96 Room Air 04/05/23 08:23 75 04/05/23 07:43 36.7 C 72 18 155/91 H 96 Room Air 04/05/23 03:38 36.4 C L 81 18 161/97 H 95 Room Air
--- NOTE | 2023-04-05 14:58 | Hospitalist Progress Note ---
Date of Service April 05, 2023 Assessment & Plan (1) Sepsis: Plan: Sepsis Possible Sources: Acute sialadenitis, suspected right shoulder septic joint H/O rotator cuff injury in the past -Shoulder CT:No fracture or dislocation within the right shoulder. There is trace fluid within the subacromial/subdeltoid space. This could represent a mild subacromial/subdeltoid bursitis versus prior rotator cuff injury. No evidence for an infectious process within the right shoulder. -CXR:Mild cardiomegaly. Otherwise, no acute process within the chest. -Neck CT:Mildly enlarged submandibular glands. This may represent infectious or inflammatory sialadenitis. Clinical correlation is recommended. Cervical lymphadenopathy. This may be reactive. Bella metastasis and lymphoproliferative disease are not excluded. Clinical correlation is recommended. --Urine analysis not suggestive of UTI --Blood Cultures:Pending -- Continue daptomycin, cefepime Failed attempted aspiration of right shoulder joint at bedside--right trap Plan for CT-guided aspiration of right shoulder Appreciate orthopedics input Pain control Received IV fluids Encourage warm compress, massage to salivary gland, increase oral fluid intake Hypertensive urgency Situational secondary to pain Started on low-dose lisinopril Monitor BP Hypokalemia Replete electrolytes as needed Monitor Other chronic conditions Hyperlipidemia--currently not on med Ocular hypertension Central retinal vein occlusion--continue aspirin Prediabetes--- HbA1c 5.7 DVT Px: SCDs for now Re: Possible procedure Code Status Full code Admission and Anticipated Discharge Date Admission Date: April 04, 2023 Subjective Patient is seen and examined at bedside States having right shoulder pain associated with decreased range of movement Also reports some discomfort with swallowing Nausea resolved Denies any chest pain, dyspnea, dizziness, vomiting, abdominal pain Review of Systems Review of Systems: All systems reviewed & are unremarkable except as noted in Subjective Physical Exam Physical Exam: Physical Exam: Vitals signs as noted above General Appearance:Moderately built and nourished, no apparent distress Head: normocephalic, Atraumatic Eyes: normal inspection, EOMI Neck: supple, Trachea midline Respiratory/Chest: Normal breath sounds, CTA, No accessory muscle use Cardiovascular: S1, S2, No murmur Abdomen/GI:Soft, Non tender, Bowel sounds present Extremities/Musculoskeletal:normal inspection, no edema, + Right anterior should er joint tenderness, decreased range of movement Neurologic/Psych:AAOX3, grossly no focal neurological deficits Skin: normal color, warm Results & Data Results & Data Vital Signs (Past 12 Hours) Vital Signs Temp Pulse Pulse Resp BP Pulse Ox O2 Del Method 04/05/23 11:41 36.9 C 80 18 135/81 96 Room Air 04/05/23 08:23 75 04/05/23 07:43 36.7 C 72 18 155/91 H 96 Room Air 04/05/23 03:38 36.4 C L 81 18 161/97 H 95 Room Air Laboratory Results Short CBC 04/04/23 04/05/23 Range/Units 19:11 05:40 WBC 15.61 H 13.77 H (4.8-10.8) K/ul Hgb 15.6 13.5 L (14.0-18.0) g/dl Hct 43.7 38.2 L (42.0-52.0) % Plt Count 200 173 (130-400) K/uL BMP 04/04/23 04/05/23 19:11 05:40 Sodium 137 139 Potassium 3.3 L 3.6 Chloride 104 107 Carbon Dioxide 22 24 BUN 12 10 Creatinine 0.87 0.83 Glucose 131 H 115 H Calcium 9.3 8.6 Liver Function 04/04/23 Range/Units 19:11 Total Bilirubin 1.0 D (0.2-1.0) mg/dl AST 13 (13-39) U/L ALT 16 (7-52) U/L Alkaline Phosphatase 64 (34-104) U/L Albumin 4.8 (3.4-5.0) gm/dl Urine 04/05/23 Range/Units Unknown Urine Color Yellow Urine Appearance Clear (Clear) Urine pH 6.0 (4.5-7.5) Ur Specific [place] 1.027 (1.000-1.030) Urine Protein Negative (Negative) Urine Glucose (UA) Negative (Negative)
--- NOTE | 2023-04-05 15:11 | Fluoroscopy Report ---
Right shoulder joint aspiration INDICATION: Shoulder pain with small joint effusion; evaluate for septic joint PROCEDURE: Procedure and risks were explained. Informed consent was obtained. A final timeout was com pleted. The right shoulder was prepped and draped in sterile fashion. 1% lidocaine was utilized for s kin anesthesia. Utilizing fluoroscopic guidance, a 20-gauge spinal needle was advanced into the right shoulder joint capsule. Approximately 0.5 mL of a viscous yellow-tinged fluid was aspirated and sent in a syringe to the lab for analysis. Approximately 3 mL of iodinated contrast was then injected through the 20-gaug e spinal needle confirming intra-articular needle position. Permanent spot images were obtained. An a dditional 0.5 mL of blood-tinged fluid was aspirated and also sent for lab for analysis. The needle w as removed and Band-Aid applied. The patient tolerated the procedure well. Total fluoroscopy time was 44 seconds. DAP is 1.72 mcGy/m2. IMPRESSION: Right shoulder joint aspiration as detailed above. Performed, dictated, and signed by David Gallegos PA-C; to be co-signed by Dr. Rene Cota. Electronically signed by: Rene Cota M.D. 04/05/2023 3:44 PM
[2023-04-05] MEDS: DAPTOmycin 450 MG in SYRINGE 0 ML IV SCH (23:00)
[2023-04-06] MEDS: oxyCODONE HCL IR 5 MG TAB (IMMEDIATE RELEASE) PO PRN ×3 (03:12→16:08)
[2023-04-06] MEDS: KETOROLAC TROMETHAMINE 15 MG/ML VIAL IV PRN ×2 (07:37→20:16)
[2023-04-06] MEDS: CEFEPIME 2,000 MG in SYRINGE 0 ML IV SCH ×3 (07:37→23:14)
[2023-04-06] MEDS: lisinopril 2.5 MG TAB PO SCH (07:38)
[2023-04-06] MEDS: ASPIRIN 81 MG ECTAB PO SCH (07:38)
[2023-04-06] MEDS: MULTIVITAMIN TAB PO SCH (07:38)
[2023-04-06 07:45] LABS: Hematocrit (blood only) 39.9 % (42.0-52.0); Hemoglobin 14.4 g/dl (14.0-18.0); Mean Corpuscular Hemoglobin 32.2 pg (25.0-34.0); Mean Corpuscular Hgb Conc 36.1 g/dL (32.0-36.0); Mean Corpuscular Volume 89.3 fL (80.0-100.0); Mean Platelet Volume 9.8 fL (9.4-12.4); Platelet Count 200 K/uL (130-400); RDW Coefficient of Variation 12.8 % (11.5-14.5); RDW Standard Deviation 42.2 fL (36.4-46.3); Red Blood Count 4.47 M/uL (4.70-6.10); White Blood Count 13.08 K/ul (4.8-10.8)
[2023-04-06 07:58] LABS: BUN Creatinine Ratio 13.2 (10-20); Calcium 9.3 mg/dl (8.6-10.3); Est GFR (African American) 112.7 ml/min; Est GFR (Non-African American) 97.2 ml/min; Magnesium 2.2 mg/dl (1.7-2.4); Potassium 3.7 mmol/L (3.5-5.1)
--- NOTE | 2023-04-06 10:27 | Orthopedic Consultation ---
Date of Consultation April 06, 2023 Assessment & Plan (1) Right rotator cuff tendinitis: It appears patient has acute rotator cuff tendinitis and biceps tendinitis with impingement. May be a feature of occult tear. Thus far infectious work-up in the right shoulder is negative with Gram stain negative and no organisms seen. Recommend MRI right shoulder to be performed today. Will follow with you. Thank you for the opportunity to consult in the care of this patient. Zenon Palomo DO [facility] (2) Biceps tendinitis of right shoulder: (3) Acute pain of right shoulder: (4) Sialadenitis: History of Present Illness Reason for Consultation: Patient was seen at the request of Dr. Valle and Dr. Urbina. Patient with complaints of right shoulder pain for approximately 3 days. He presented to the emergency department on initial visit and was treated for shoulder pain/bursitis. Given Keflex in addition to anti-inflammatories and discharged home. Patient presented back to the ER with worsening right neck and shoulder pain. The patient then underwent more extensive work-up. He was determined to be septic with concern for sialoadenitis, enlargement of heart and possible right shoulder infection. Patient underwent CT-guided aspiration of the right shoulder yesterday with findings of no white cells and no organisms in the right shoulder. Patient continues on IV antibiotics to treat suspected sialoadenitis. Attending Physician: Ross Valle MD History of Present Illness No history of significant right shoulder pathology. No previous injuries. No prior right shoulder surgery. He admits to right shoulder rotator cuff tendinitis many years ago however that resolved spontaneously. Allergies Allergy/AdvReac Type Severity Reaction Status Date / Time No Known Allergies Allergy NONE Unverified 04/03/23 15:43 Home Medications Medication Instructions Recorded Confirmed Type aspirin 81 mg tablet,delayed 81 mg PO DAILY 10/01/19 04/04/23 History release fexofenadine 180 mg tablet 180 mg PO DAILY 10/01/19 04/04/23 History (Alana Allergy) multivitamin 1 tab PO DAILY 10/01/19 04/04/23 History omega 5-ypo-yxh-fish oil 1,000 mg 1 cap PO DAILY 10/01/19 04/04/23 History (120 mg-180 mg) capsule (Fish Oil) cephalexin 500 mg capsule 500 mg PO QID 9 days #36 caps 04/03/23 04/04/23 Rx hydrocodone 5 mg-acetaminophen 325 1 - 2 tab PO Q6H PRN pain #10 tabs 04/03/23 04/04/23 Rx mg tablet Patient History Surgical History H/O hernia repair Family History Other Cancer Diabetes Gallbladder disease Heart disease Hypertension Kidney disease Lung disease Multiple sclerosis Seizure Social History Smoking Status: Former smoker Second Hand Exposure: No; Do You Dip or Chew Tobacco: No; Tobacco Cessation Education Requested by Patient: No Hx Alcohol Use: Yes Hx Substance Use: Yes Last Used Substance: Days (ago) Last Used Substance Other:: 04/03/2023 Preferred Language: Turkish Communication Ability: Effective 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 No acute distress. Answers all questions Constitutional: WD/WN, vitals as above Eyes: PERRL, conjunctivae normal, anicteric sclerae ENMT: external ear and nose normal, oropharynx normal Wearing glasses. Neck: trachea midline, no thyromegaly Right-sided neck generalized swelling without evidence of abscess, erythema, streaking or fluid collection. Respiratory: normal respiratory effort, lungs clear to auscultation Musculoskeletal: Right shoulder exam demonstrates normal resting position. No obvious deformity. Mild enlargement at the right AC joint. No erythema overlying the AC joint right shoulder or the right upper chest. He has tenderness to palpation at the bicipital groove and over the anterolateral supraspinatus. No tenderness at the posterior deltoid or posterior rotator cuff. He has generalized discomfort with active range of motion of the right shoulder. Passive range of motion is tolerated without significant difficulty with the exception of adduction and internal rotation with forward elevation. Positive Neer test. Positive Huizar test. Positive empty can test. Positive speeds test. No evidence of laxity or luxation with passive range of motion. Negative apprehension test. Radial pulse 2/4 bilateral. Radial, ulnar median and axillary nerve sensory and motor function were intact. Compartments soft. Skin: no rashes, warm and dry Neurologic: PERRL, EOMI, accommodation nl, no face palsy, no dysarthria Psychiatric: A+Ox3, euthymic affect Lymphatic: No palpable lymphadenopathy upper extremities, right axilla or antecubital fossa. Results & Data Vital Signs (Past 12 Hours) Vital Signs Temp Pulse Pulse Resp BP BP Pulse Ox 04/06/23 07:21 36.9 C 91 H 18 163/98 H 96 04/06/23 07:03 67 04/06/23 03:57 37.1 C 90 18 144/84 H 96 04/06/23 00:21 61 04/06/23 00:20 133/81 04/05/23 22:43 87 04/05/23 22:59 36.7 C 97 H 16 171/99 H 93 O2 Del Method 04/06/23 07:21 Room Air 04/06/23 07:03 04/06/23 03:57 Room Air 04/06/23 00:21 04/06/23 00:20 04/05/23 22:43 04/05/23 22:59 Room Air Diagnostic Findings Radiographs reviewed noting mild hypertrophy at the AC joint with inferiorly directed osteophytes. No significant loss of joint space at the AC joint. Glenohumeral joint is symmetric. No fracture and no focal loss of joint space. CT scan reviewed noting mild shoulder bursitis without obvious rotator cuff tear. No fracture. AC joint mild hypertrophy with inferiorly directed osteophytes.
--- NOTE | 2023-04-06 16:55 | Hospitalist Progress Note ---
Date of Service April 06, 2023 Assessment & Plan (1) Sepsis: Plan: Sepsis Possible Sources: Acute sialadenitis, suspected right shoulder septic joint (Less likely) H/O rotator cuff injury in the past -Shoulder CT:No fracture or dislocation within the right shoulder. There is trace fluid within the subacromial/subdeltoid space. This could represent a mild subacromial/subdeltoid bursitis versus prior rotator cuff injury. No evidence for an infectious process within the right shoulder. -CXR:Mild cardiomegaly. Otherwise, no acute process within the chest. -Neck CT:Mildly enlarged submandibular glands. This may represent infectious or inflammatory sialadenitis. Clinical correlation is recommended. Cervical lymphadenopathy. This may be reactive. Bella metastasis and lymphoproliferative disease are not excluded. Clinical correlation is recomme nded. --Urine analysis not suggestive of UTI --Blood Cultures:Negative to date --S/P joint aspiration: No monosodium urate crystals or calcium pyrophosphate crystals seen Gram stain no WBC, organisms seen Cultures pending -- Continue daptomycin, cefepime for now Appreciate orthopedics input Pain control Received IV fluids Encourage warm compress, massage to salivary gland, increase oral fluid intake Right shoulder MRI pending Further management based on MRI results Hypertensive urgency Situational secondary to pain Started on low-dose lisinopril Monitor BP Hypokalemia Replete electrolytes as needed Monitor Other chronic conditions Hyperlipidemia--currently not on med Ocular hypertension Central retinal vein occlusion--continue aspirin Prediabetes--- HbA1c 5.7 DVT Px: SCDs for now Re: Possible procedure Code Status Full code Admission and Anticipated Discharge Date Admission Date: April 04, 2023 Subjective Patient is seen and examined at bedside Continues to have right shoulder pain No significant change from yesterday Right shoulder MRI pending Blood pressure variable Odynophagia improved Denies any chest pain, dyspnea, dizziness, vomiting, abdominal pain Review of Systems Review of Systems: All systems reviewed & are unremarkable except as noted in Subjective Physical Exam Physical Exam: Physical Exam: Vitals signs as noted above General Appearance:Moderately built and nourished, no apparent distress Head: normocephalic, Atraumatic Eyes: normal inspection, EOMI Neck: supple, Trachea midline Respiratory/Chest: Normal breath sounds, CTA, No accessory muscle use Cardiovascular: S1, S2, No murmur Abdomen/GI:Soft, Non tender, Bowel sounds present Extremities/Musculoskeletal:normal inspection, no edema, + Right anterior shoulder joint tenderness, decreased range of movement Neurologic/Psych:AAOX3, grossly no focal neurological deficits Skin: normal color, warm Results & Data Results & Data Vital Signs (Past 12 Hours) Vital Signs Temp Pulse Pulse Resp BP BP Pulse Ox 04/06/23 15:25 72 04/06/23 15:05 36.9 C 86 16 144/90 H 95 04/06/23 11:30 37.0 C 87 18 142/84 H 96 04/06/23 07:21 36.9 C 91 H 18 163/98 H 96 04/06/23 07:03 67 O2 Del Method 04/06/23 15:25 04/06/23 15:05 Room Air 04/06/23 11:30 Room Air 04/06/23 07:21 Room Air 04/06/23 07:03 Laboratory Results Short CBC 04/06/23 Range/Units 07:21 WBC 13.08 H (4.8-10.8) K/ul Hgb 14.4 (14.0-18.0) g/dl Hct 39.9 L (42.0-52.0) % Plt Count 200 (130-400) K/uL BMP 04/06/23 07:21 Sodium 137 Potassium 3.7 Chloride 103 Carbon Dioxide 23 BUN 12 Creatinine 0.91 Glucose 108 H Calcium 9.3
[2023-04-06] MEDS: ACETAMINOPHEN 325 MG TAB PO PRN (19:24)
[2023-04-06] MEDS ORDERED: GADOBUTROL 65ML VIAL IV ONE (21:29)
--- NOTE | 2023-04-06 21:48 | Magnetic Resonance Report ---
Exam(s): MRI RIGHT SHOULDER W/WO Contrast IV Amt: 9.7cc gadavist inj. left iv at 2125 hr. EXAM: MR Right Upper Extremity Without and With Intravenous Contrast, Shoulder CLINICAL HISTORY: Reason for exam: Assess for rotator cuff +/- bicep tendon tear. TECHNIQUE: Multiplanar magnetic resonance images of the right shoulder without and with intravenous contrast. CONTRAST: Patient received 9.7cc gadavist inj. left iv at 2125 hr. of IV contrast COMPARISON: No relevant prior studies available. FINDINGS: TENDONS: Supraspinatus: Mild supraspinatus tendinosis, without tear. Infraspinatus: Mild infraspinatus tendinosis, without tear. Subscapularis: Unremarkable. Teres minor: Unremarkable. Biceps brachii, long head: Mild intra-articular biceps tendinosis. LIGAMENTS: Glenohumeral: Unremarkable. Muscles: Unremarkable. Fluid: Unremarkable. No joint effusion. Cartilage: Grade 1 chondral degeneration of the humeral head articular cartilage. Glenoid labrum: Unremarkable. No tear. Bones/joints: Mild-moderate degeneration of the acromioclavicular joint. Mild spurring of the posterior glenoid rim. IMPRESSION: Mild supraspinatus and infraspinatus tendinosis, without tear. Normal biceps tendon. Mild intra-articular biceps tendinosis. Electronically signed by: Sam Fleming MD 04/06/23 21:47 PM
[2023-04-06] MEDS: DAPTOmycin 450 MG in SYRINGE 0 ML IV SCH (23:13)
[2023-04-07] MEDS: KETOROLAC TROMETHAMINE 15 MG/ML VIAL IV PRN ×2 (02:46→09:03)
[2023-04-07 07:42] LABS: BUN Creatinine Ratio 15.1 (10-20); Calcium 9.2 mg/dl (8.6-10.3); Creatinine Clr Calc Pharmacy 122.3 ml/min; Est GFR (African American) 116.4 ml/min; Est GFR (Non-African American) 100.4 ml/min
[2023-04-07 07:48] LABS: Hematocrit (blood only) 40.2 % (42.0-52.0); Hemoglobin 14.3 g/dl (14.0-18.0); Mean Corpuscular Hemoglobin 31.6 pg (25.0-34.0); Mean Corpuscular Hgb Conc 35.6 g/dL (32.0-36.0); Mean Corpuscular Volume 88.9 fL (80.0-100.0); Mean Platelet Volume 9.8 fL (9.4-12.4); Platelet Count 220 K/uL (130-400); RDW Coefficient of Variation 12.6 % (11.5-14.5); RDW Standard Deviation 41.5 fL (36.4-46.3); Red Blood Count 4.52 M/uL (4.70-6.10); White Blood Count 9.87 K/ul (4.8-10.8)
[2023-04-07] MEDS: CEFEPIME 2,000 MG in SYRINGE 0 ML IV SCH (07:53)
[2023-04-07] MEDS: MULTIVITAMIN TAB PO SCH (07:54)
[2023-04-07] MEDS: ASPIRIN 81 MG ECTAB PO SCH (07:54)
[2023-04-07] MEDS ORDERED: lisinopril 5 MG TAB PO SCH (09:00)
--- NOTE | 2023-04-07 09:09 | Orthopedic Progress Note ---
Date of Service April 07, 2023 Assessment & Plan (1) Right rotator cuff tendinitis: Plan: Acute rotator cuff tendinitis and biceps tendinitis with AC osteoarthritis and subacromial impingement. May be a feature of small undersurface occult tear. Presumptive diagnosis of sialadenitis with right sided cervical lymphadenopathy. Thus far infectious work-up in the right shoulder is negative with Gram stain negative and no organisms seen. Begin PT and NSAIDs Per medicine service. Consider steroid injection if fails to improve by am. Will follow with you. May begin outpatient physical therapy with modalities right shoulder 3 times per week for a period of 4 to 6 weeks. Patient to follow-up in office with Dr. Palomo in 2 weeks for reassessment. Thank you for the opportunity to consult in the care of this patient. Zenon Palomo DO [facility] [place] (2) Biceps tendinitis of right shoulder: (3) Acute pain of right shoulder: (4) Sialadenitis: (5) Acromioclavicular joint arthritis: (6) Impingement syndrome of right shoulder region: Admission and Anticipated Discharge Date Admission Date: April 04, 2023 Subjective Patient is seen sitting up in bed and examined at bedside. Improved demeanor today. Continues to have right shoulder pain with some improvement. Mild to moderate change from yesterday. Right shoulder MRI completed Blood pressure variable. Odynophagia improved. Denies any chest pain, difficulty swallowing, dyspnea, dizziness, vomiting, or abdominal pain. Physical Exam Physical Exam: Resting upright in his hospital bed with a pillow under his right arm. No acute distress. Answers all questions Constitutional: WD/WN, vitals as above Eyes: PERRL, conjunctivae normal, anicteric sclerae ENMT: external ear and nose normal, oropharynx normal Neck: trachea midline, no thyromegaly Respiratory: normal respiratory effort, lungs clear to auscultation Musculoskeletal: Right shoulder exam demonstrates Improved normal resting position. No obvious deformity. Mild enlargement at the right AC joint. No erythema overlying the AC joint right shoulder or the right upper chest. He has tenderness to palpation at the bicipital groove and over the anterolateral supraspinatus. No tenderness at the posterior deltoid or posterior rotator cuff. He has generalized discomfort with active range of motion of the right shoulder however this is improved compared to prior day exam. Passive range of motion is tolerated without significant difficulty with the exception of adduction and internal rotation with forward elevation. Positive Neer test. Positive Huizar test. Positive empty can test. Positive speeds test. No evidence of laxity or subluxation with passive range of motion. Negative apprehension test. Radial pulse 2/4 bilateral. Radial, ulnar median and axillary nerve sensory and motor function were intact. Compartments soft. Skin: no rashes, warm and dry Neurologic: PERRL, EOMI, accommodation nl, no face palsy, no dysarthria Psychiatric: A+Ox3, euthymic affect Results & Data Vital Signs (Past 12 Hours) Vital Signs Temp Pulse Pulse Resp BP BP Pulse Ox 04/07/23 07:35 37.0 C 69 18 149/89 H 94 04/07/23 03:39 36.7 C 75 16 137/86 96 04/06/23 22:16 79 04/06/23 23:07 37.0 C 74 18 136/89 94 O2 Del Method 04/07/23 07:35 Room Air 04/07/23 03:39 Room Air 04/06/23 22:16 04/06/23 23:07 Room Air Diagnostic Findings MRI FINDINGS PERSONALLY REVIEWED IMAGES AND REPORT: TENDONS: Supraspinatus: Mild supraspinatus tendinosis, without tear. Infraspinatus: Mild infraspinatus tendinosis, without tear. Subscapularis: Unremarkable. Teres minor: Unremarkable. Biceps brachii, long head: Mild intra-articular biceps tendinosis. LIGAMENTS: Glenohumeral: Unremarkable. Muscles: Unremarkable. Fluid: Unremarkable. No joint effusion. Cartilage: Grade 1 chondral degeneration of the humeral head articular cartilage. Glenoid labrum: Unremarkable. No tear. Bones/joints: Mild-moderate degeneration of the acromioclavicular joint. Mild spurring of the posterior glenoid rim. IMPRESSION: Mild supraspinatus and infraspinatus tendinosis, without tear. Normal biceps tendon. Mild intra-articular biceps tendinosis.
[2023-04-07 12:11] LABS: Codeine Urine NEGATIVE ng/mL (<50); Hydrocodone Urine 439 ng/mL (<50); Hydromor Urine 341 ng/mL (<50); Marijuana Quant, GCMS Urine 149 ng/mL (<5); Morphine Urine NEGATIVE ng/mL (<50); Norhydrocodone Conf Ur 225 ng/mL (<50); Noroxycodone Urine 162 ng/mL (<50); Oxycodone Urine 605 ng/mL (<50); Oxymorph Urine 196 ng/mL (<50)
--- NOTE | 2023-04-07 12:12 | Hospitalist Progress Note ---
Date of Service April 07, 2023 Assessment & Plan (1) Sepsis: Plan: Sepsis Possible Sources: Acute sialadenitis, suspected right shoulder septic joint (Less likely) Acute rotator cuff tendinitis and biceps tendinitis with AC osteoarthritis and subacromial impingement -Shoulder MRI:Mild supraspinatus and infraspinatus tendinosis, without tear. Normal biceps tendon. Mild intra-articular biceps tendinosis. H/O rotator cuff injury in the past -Shoulder CT:No fracture or dislocation within the right shoulder. There is trace fluid within the subacromial/subdeltoid space. This could represent a mild subacromial/subdeltoid bursitis versus prior rotator cuff injury. No evidence for an infectious process within the right shoulder. -CXR:Mild cardiomegaly. Otherwise, no acute process within the chest. -Neck CT:Mildly enlarged submandibular glands. This may represent infectious or inflammatory sialadenitis. Clinical correlation is recommended. Cervical lymphadenopathy. This may be reactive. Bella metastasis and lymphoprolif erative disease are not excluded. Clinical correlation is recommended. --Urine analysis not suggestive of UTI --Blood Cultures:Negative to date --S/P joint aspiration: No monosodium urate crystals or calcium pyrophosphate crystals seen Gram stain no WBC, organisms seen Cultures preliminary--No growth -- Continue daptomycin, cefepime >>Transition to Unasyn Appreciate orthopedics input Pain control Received IV fluids Encourage warm compress, massage to salivary gland, increase oral fluid intake Trial of physical therapy, NSAIDs Clinically improved Needs follow-up with orthopedics upon discharge Hypertensive urgency Situational secondary to pain Continue lisinopril Monitor BP Hypokalemia Replete electrolytes as needed Monitor Other chronic conditions Hyperlipidemia--currently not on med Ocular hypertension Central retinal vein occlusion--continue aspirin Prediabetes--- HbA1c 5.7 DVT Px: SCDs for now Re: Possible procedure Code Status Full code Disposition Home Admission and Anticipated Discharge Date Admission Date: April 04, 2023 Subjective Patient is seen and examined at bedside Right shoulder pain is much improved Reports no new complaints Odynophagia resolved Denies any chest pain, dyspnea, dizziness, vomiting, abdominal pain Plan to discharge home today Review of Systems Review of Systems: All systems reviewed & are unremarkable except as noted in Subjective Physical Exam Physical Exam: Physical Exam: Vitals signs as noted above General Appearance:Moderately built and nourished, no apparent distress Head: normocephalic, Atraumatic Eyes: normal inspection, EOMI Neck: supple, Trachea midline Respiratory/Chest: Normal breath sounds, CTA, No accessory muscle use Cardiovascular: S1, S2, No murmur Abdomen/GI:Soft, Non tender, Bowel sounds present Extremities/Musculoskeletal:normal inspection, no edema, + Right anterior shoulder joint tenderness better Neurologic/Psych:AAOX3, grossly no focal neurological deficits Skin: normal color, warm Results & Data Results & Data Vital Signs (Past 12 Hours) Vital Signs Temp Pulse Pulse Resp BP BP Pulse Ox 04/07/23 07:00 59 L 04/07/23 11:11 36.5 C 78 18 160/82 H 96 04/07/23 07:35 37.0 C 69 18 149/89 H 94 04/07/23 03:39 36.7 C 75 16 137/86 96 O2 Del Method 04/07/23 07:00 04/07/23 11:11 Room Air 04/07/23 07:35 Room Air 04/07/23 03:39 Room Air Laboratory Results Short CBC 04/07/23 Range/Units 06:57 WBC 9.87 (4.8-10.8) K/ul Hgb 14.3 (14.0-18.0) g/dl Hct 40.2 L (42.0-52.0) % Plt Count 220 (130-400) K/uL BMP 04/07/23 06:57 Sodium 138 Potassium 4.0 Chloride 104 Carbon Dioxide 25 BUN 13 Creatinine 0.86 Glucose 116 H Calcium 9.2
--- NOTE | 2023-04-07 12:39 | Discharge Summary ---
Date of Service April 07, 2023 Admission HPI Per Admitting Provider History obtained from patient and records. Medical history significant for hyperlipidemia, ocular hypertension as per records, CRVO on aspirin, 2 days ago, patient woke up with right shoulder pain going to his neck and chest. No recollection of recent trauma. Denies IVDU. CT right shoulder showed mild subacromial/subdeltoid bursitis versus rotator cuff injury. Patient discharged home on Keflex course for possible infection. Vicodin prescribed for pain. Worsening pain at home despite compliance with medications. Low-grade fever. Patient noted painful neck swelling followed by emesis. Denies tooth ache or sore throat symptoms. Denies headache, chest pain, SOB. No unusual weight loss or night sweats. No prior episodes. Patient returned to ER. IV ceftriaxone administered at the ER. Medical History as above Surgical History : Hernia repair Family History : DM, heart disease, stroke, MS Personal/Social history : Non-smoker, occasional EtOH intake, [employer] Admission Exam Per Admitting Provider GENERAL: Slightly uncomfortable, no respiratory distress, no stridor SKIN: Normal color, warm HEENT: Bespectacled, [place] palpebral conjunctivae, no ptosis, moist buccal mucosa NECK : Supple, palpable cervical adenopathy with tenderness CHEST : CTA, no tenderness HEART : RRR, no obvious murmurs ABDOMEN: Some distention, nontender EXTREMITIES : No LE swelling/tenderness, right shoulder tenderness NEUROLOGIC : Coherent, no facial asymmetry, no other gross focality Principal Diagnosis Sepsis Acute sialadenitis Acute rotator cuff tendinitis Hypertension Discharge Data Allergies Allergy/AdvReac Type Severity Reaction Status Date / Time No Known Allergies Allergy NONE Unverified 04/03/23 15:43 Consultations 04/04/23 21:50 ED Decision to Admit Stat 04/04/23 23:10 Consult Orthopedic Surgery Routine Procedures Performed Laboratory Results WBC 9.87 K/ul (4.8-10.8) 04/07/23 06:57 RBC 4.52 M/uL (4.70-6.10) L 04/07/23 06:57 Hgb 14.3 g/dl (14.0-18.0) 04/07/23 06:57 Hct 40.2 % (42.0-52.0) L 04/07/23 06:57 MCV 88.9 fL (80.0-100.0) 04/07/23 06:57 MCH 31.6 pg (25.0-34.0) 04/07/23 06:57 MCHC 35.6 g/dL (32.0-36.0) 04/07/23 06:57 RDW Std Deviation 41.5 fL (36.4-46.3) 04/07/23 06:57 RDW Coeff of Amol 12.6 % (11.5-14.5) 04/07/23 06:57 Plt Count 220 K/uL (130-400) 04/07/23 06:57 MPV 9.8 fL (9.4-12.4) 04/07/23 06:57 Immature Gran % (Auto) 0.4 % 04/05/23 05:40 Neut % (Auto) 68.8 % 04/05/23 05:40 Lymph % (Auto) 17.9 % 04/05/23 05:40 [place] % (Auto) 12.4 % 04/05/23 05:40 Eos % (Auto) 0.4 % 04/05/23 05:40 Baso % (Auto) 0.1 % 04/05/23 05:40 Neut # (Auto) 9.47 K/uL (1.40-6.50) H 04/05/23 05:40 Lymph # (Auto) 2.47 K/uL (1.2-3.4) 04/05/23 05:40 [place] # (Auto) 1.71 K/uL (0.11-0.59) H 04/05/23 05:40 Eos # (Auto) 0.05 K/uL (0-0.50) 04/05/23 05:40 Baso # (Auto) 0.02 K/uL (0-0.2) 04/05/23 05:40 Immature Gran # (Auto) 0.05 K/uL (0.01-0.20) 04/05/23 05:40 ESR 41 mm/hr (0-20) H 04/05/23 13:15 PT 10.6 Seconds (9.0-12.0) 04/04/23 19:11 INR 1.0 (0.9-1.1) 04/04/23 19:11 APTT 28.4 Seconds (21.0-31.0) 04/04/23 19:11 PTT Ratio 1.0 04/04/23 19:11 Sodium 138 mmol/L (136-145) 04/07/23 06:57 Potassium 4.0 mmol/L (3.5-5.1) 04/07/23 06:57 Chloride 104 mmol/L (98-107) 04/07/23 06:57 Carbon Dioxide 25 mmol/L (21-32) 04/07/23 06:57 Anion Gap 9 (3-11) 04/07/23 06:57 BUN 13 mg/dl (6-23) 04/07/23 06:57 Creatinine 0.86 mg/dl (0.6-1.4) 04/07/23 06:57 Est Cr Clr Drug Dosing 122.3 ml/min 04/07/23 06:57 Est GFR ( Amer) 116.4 ml/min 04/07/23 06:57 Est GFR (Non-Af Amer) 100.4 ml/min 04/07/23 06:57 BUN/Creatinine Ratio 15.1 (10-20) 04/07/23 06:57 Glucose 116 mg/dl (70-99(Fasting)) H 04/07/23 06:57 Estimat Average Glucose 117 mg/dl 04/04/23 23:05 Hemoglobin A1c 5.7 % (4.5-5.6) H 04/04/23 23:05 Lactate 1.3 mmol/L (0.4-2.0) 04/04/23 19:11 Calcium 9.2 mg/dl (8.6-10.3) 04/07/23 06:57 Magnesium 2.2 mg/dl (1.7-2.4) 04/06/23 07:21 Total Bilirubin 1.0 mg/dl (0.2-1.0) D 04/04/23 19:11 AST 13 U/L (13-39) 04/04/23 19:11 ALT 16 U/L (7-52) 04/04/23 19:11 Alkaline Phosphatase 64 U/L (34-104) 04/04/23 19:11 Lactate Dehydrogenase 132 U/L (86-244) 04/05/23 05:40 Troponin I High Sens 4.2 pg/ml (0-20) 04/04/23 19:11 C-Reactive Protein 13.38 mg/dl (0-0.5) H 04/05/23 13:15 Total Protein 8.3 gm/dl (6.0-8.3) 04/04/23 19:11 Albumin 4.8 gm/dl (3.4-5.0) 04/04/23 19:11 Globulin 3.5 gm/dl (2.5-4.0) 04/04/23 19:11 Albumin/Globulin Ratio 1.4 (0.9-2) 04/04/23 19:11 Procalcitonin 0.05 ng/ml (0-0.5) 04/04/23 19:11 Urine Color Yellow 04/05/23 Unknown Urine Appearance Clear (Clear) 04/05/23 Unknown Urine pH 6.0 (4.5-7.5) 04/05/23 Unknown Ur Specific Stella 1.027 (1.000-1.030) 04/05/23 Unknown Urine Protein Negative (Negative) 04/05/23 Unknown Urine Glucose (UA) Negative (Negative) 04/05/23 Unknown Urine Ketones Negative (Negative) 04/05/23 Unknown Urine Blood Negative (Negative) 04/05/23 Unknown Urine Nitrite Negative (Negative) 04/05/23 Unknown Urine Bilirubin Negative (Negative) 04/05/23 Unknown Urine Urobilinogen Negative (Negative) 04/05/23 Unknown Ur Leukocyte Esterase Negative (Negative) 04/05/23 Unknown Fluid Comment Cancelled 04/05/23 Unknown Synovial Source Cancelled 04/05/23 Unknown Synovial Color Cancelled 04/05/23 Unknown Synovial Appearance Cancelled 04/05/23 Unknown Synovial WBC (Auto) Cancelled 04/05/23 Unknown Synovial WBC Cancelled 04/05/23 Unknown Synovial RBC (Auto) Cancelled 04/05/23 Unknown Synovial RBC Cancelled 04/05/23 Unknown Synov Polynuclear WBCs Cancelled 04/05/23 Unknown Synov Mononuclear WBCs Cancelled 04/05/23 Unknown Synovial Other Cells Cancelled 04/05/23 Unknown Synovial Polynuclear % Cancelled 04/05/23 Unknown Synovial Mononuclear % Cancelled 04/05/23 Unknown Synovial Crystals 04/05/23 Unknown Nasal Screen MRSA (PCR) Negative (Negative) 04/04/23 23:28 Urine Opiates Screen Pos (Neg) H 04/05/23 Unknown U Codeine Confrm GC/MS NEGATIVE ng/mL (<50) 04/05/23 Unknown Ur Morphine (GC/MS) NEGATIVE ng/mL (<50) 04/05/23 Unknown Ur Hydrocodone (GC/MS) 439 ng/mL (<50) H 04/05/23 Unknown Ur Norhydrocodone 225 ng/mL (<50) H 04/05/23 Unknown Ur Noroxycodone 162 ng/mL (<50) H 04/05/23 Unknown Urine Oxycodone (GC/MS) 605 ng/mL (<50) H 04/05/23 Unknown U Oxymorphone GC/MS 196 ng/mL (<50) H 04/05/23 Unknown Ur Methadone, Qual Neg (Neg) 04/05/23 Unknown Ur Hydromorphone (GC/MS) 341 ng/mL (<50) H 04/05/23 Unknown Urine Barbiturates Neg (Neg) 04/05/23 Unknown Ur Phencyclidine (PCP) Neg (Neg) 04/05/23 Unknown U Amphetamin/Meth Scrn Neg (Neg) 04/05/23 Unknown MDMA (Ecstasy) Screen Neg (Neg) 04/05/23 Unknown U Benzodiazepines Scrn Neg (Neg) 04/05/23 Unknown Ur Cocaine Metabolite Neg (Neg) 04/05/23 Unknown U Marijuana (THC) Screen Pos (Neg) H 04/05/23 Unknown U Marijuana THC Carboxy 149 ng/mL (<5) H 04/05/23 Unknown Drug Screen Comment SEE NOTE 04/05/23 Unknown Lyme Disease IgG Ab Negative (Negative) 04/04/23 19:11 Lyme Disease IgM Ab Negative (Negative) 04/04/23 19:11 Group A Strep (PCR) NOT DETECTED (NotDetected) 04/04/23 19:14 Impressions Chest X-Ray 04/04/23 19:03 XR chest 1V not portable CLINICAL HISTORY: Sepsis TECHNIQUE: Single frontal radiograph of the chest was obtained. Comparison: Comparison is made to chest radiograph 04/03/2023 FINDINGS: No lines and tubes are seen. The cardiomediastinal silhouette is normal. The lungs are clear. No evidence of pleural effusion or pneumothorax. IMPRESSION: No acute abnormalities and in particular no radiographic evidence of pneumonia. ACT 112: Negative or not required by law. Electronically signed by: Chandler Lowe M.D. 04/04/2023 8:[address] 04/04/23 20:25 Exam(s): CT NECK With Contrast IV Amt: 94 ml [id number] EXAM: CT Neck With Intravenous Contrast CLINICAL HISTORY: Reason for exam: rt sided swelling. TECHNIQUE: Axial computed tomography images of the neck with intravenous contrast. CTDI is 19.54 mGy and DLP is 568.28 mGy-cm. Automated exposure control was utilized for the study. A dose lowering technique was utilized adhering to the principles of ALARA. CONTRAST: Patient received 94 ml [id number] of IV contrast COMPARISON: None. FINDINGS: Oropharynx: Unremarkable. No significant tonsillar enlargement. No peritonsillar abscess. Hypopharynx: Unremarkable. Larynx: Unremarkable. Normal epiglottis. Trachea: Unremarkable. Retropharyngeal space: Unremarkable. Submandibular/parotid glands: Mildly enlarged submandibular glands. No salivary gland calculi are seen. Thyroid: Unremarkable. No enlarged or calcified nodules. Bones/joints: Degenerative change in the spine. No high-grade spinal canal stenosis. No acute fracture. Soft tissues: Unremarkable. Vasculature: No acute findings. Lymph nodes: Cervical lymphadenopathy. Sinuses: Mild mucosal thickening in the ethmoid sinuses. Lung apices: Unremarkable as visualized. IMPRESSION: 1. Mildly enlarged submandibular glands. This may represent infectious or inflammatory sialadenitis. Clinical correlation is recommended. 2. Cervical lymphadenopathy. This may be reactive. Bella metastasis and lymphoproliferative disease are not excluded. Clinical correlation is recommended. Electronically signed by: Maykel John MD 04/04/23 22:04 PM Arthrography Joint Steriod Inject 04/05/23 14:06 Right shoulder joint aspiration INDICATION: Shoulder pain with small joint effusion; evaluate for septic joint PROCEDURE: Procedure and risks were explained. Informed consent was obtained. A final timeout was completed. The right shoulder was prepped and draped in sterile fashion. 1% lidocaine was utilized for skin anesthesia. Utilizing fluoroscopic guidance, a 20-gauge spinal needle was advanced into the right shoulder joint capsule. Approximately 0.5 mL of a viscous yellow-tinged fluid was aspirated and sent in a syringe to the lab for analysis. Approximately 3 mL of iodinated contrast was then injected through the 20-gauge spinal needle confirming intra-articular needle position. Permanent spot images were obtained. An additional 0.5 mL of blood-tinged fluid was aspirated and also sent for lab for analysis. The needle was removed and Band-Aid applied. The patient tolerated the procedure well. Total fluoroscopy time was 44 seconds. DAP is 1.72 mcGy/m2. IMPRESSION: Right shoulder joint aspiration as detailed above. Performed, dictated, and signed by David aGllegos PA-C; to be co-signed by Dr. Rene Cota. Electronically signed by: Rene Cota M.D. 04/05/2023 3:44 PM Shoulder MRI 04/06/23 10:27 Exam(s): MRI RIGHT SHOULDER W/WO Contrast IV Amt: 9.7cc gadavist inj. left iv at 2125 hr. EXAM: MR Right Upper Extremity Without and With Intravenous Contrast, Shoulder CLINICAL HISTORY: Reason for exam: Assess for rotator cuff +/- bicep tendon tear. TECHNIQUE: Multiplanar magnetic resonance images of the right shoulder without and with intravenous contrast. CONTRAST: Patient received 9.7cc gadavist inj. left iv at 2125 hr. of IV contrast COMPARISON: No relevant prior studies available. FINDINGS: TENDONS: Supraspinatus: Mild supraspinatus tendinosis, without tear. Infraspinatus: Mild infraspinatus tendinosis, without tear. Subscapularis: Unremarkable. Teres minor: Unremarkable. Biceps brachii, long head: Mild intra-articular biceps tendinosis. LIGAMENTS: Glenohumeral: Unremarkable. Muscles: Unremarkable. Fluid: Unremarkable. No joint effusion. Cartilage: Grade 1 chondral degeneration of the humeral head articular cartilage. Glenoid labrum: Unremarkable. No tear. Bones/joints: Mild-moderate degeneration of the acromioclavicular joint. Mild spurring of the posterior glenoid rim. IMPRESSION: Mild supraspinatus and infraspinatus tendinosis, without tear. Normal biceps tendon. Mild intra-articular biceps tendinosis. Electronically signed by: Sam Fleming MD 04/06/23 21:47 PM Ordered Studies 04/04/23 20:25 CT soft tissue neck w con Stat 04/05/23 14:06 Fluoro shoulder [IR inj majr joint sh,hip,kn RT] Stat 04/06/23 10:27 MRI Shoulder [MR shoulder RT wo/w con] Routine Hospital Course (1) Sepsis: Sepsis Possible Sources: Acute sialadenitis, suspected right shoulder septic joint (Less likely) Acute rotator cuff tendinitis and biceps tendinitis with AC osteoarthritis and subacromial impingement -Shoulder MRI:Mild supraspinatus and infraspinatus tendinosis, without tear. Normal biceps tendon. Mild intra-articular biceps tendinosis. H/O rotator cuff injury in the past -Shoulder CT:No fracture or dislocation within the right shoulder. There is trace fluid within the subacromial/subdeltoid space. This could represent a mild subacromial/subdeltoid bursitis versus prior rotator cuff injury. No evidence for an infectious process within the right shoulder. -CXR:Mild cardiomegaly. Otherwise, no acute process within the chest. -Neck CT:Mildly enlarged submandibular glands. This may represent infectious or inflammatory sialadenitis. Clinical correlation is recommended. Cervical lymphadenopathy. This may be reactive. Bella metastasis and lymphoproliferative disease are not excluded. Clinical correlation is recommended. --Urine analysis not suggestive of UTI --Blood Cultures:Negative to date --S/P joint aspiration: No monosodium urate crystals or calcium pyrophosphate crystals seen Gram stain no WBC, organisms seen Cultures preliminary--No growth -- Continue daptomycin, cefepime >>Transition to Unasyn Appreciate orthopedics input Pain control Received IV fluids Encourage warm compress, massage to salivary gland, increase oral fluid intake Trial of physical therapy, NSAIDs Clinically improved Needs follow-up with orthopedics upon discharge Hypertensive urgency Situational secondary to pain Continue lisinopril Monitor BP Hypokalemia Replete electrolytes as needed Monitor Other chronic conditions Hyperlipidemia--currently not on med Ocular hypertension Central retinal vein occlusion--continue aspirin Prediabetes--- HbA1c 5.7 DVT Px: SCDs for now Re: Possible procedure Code Status Full code Disposition Home Total Time Total Time Spent Total Time Spent (In Minutes): 54 minutes Discharge Plan Discharge Items Patient Disposition: Home - Self-Care Reason For Visit: SEPSIS Discharge Diagnosis: Sepsis Acute sialadenitis Acute rotator cuff tendinitis Hypertension Activity: Per Instructions section Exercise/Sports: Gradually increase as tolerated Non-emergency contact: Primary Care Provider and Surgeon Call non-emergency contact if: you have any medication questions, your symptoms worsen, your pain is concerning for you and you have a fever Follow-up/Referrals: Evelio Pickard MD [Primary Care Provider] - Diet: Regular Addtl Attending Provider Instructions: Follow-up with your primary care physician in 1 week Follow-up with your orthopedic surgeon Sonia Palomo in 2 weeks as advised -- Complete antibiotic course (Augmentin) as prescribed. -- Get outpatient physical therapy as recommended -- Monitor your blood pressure regularly at home. Discuss with your physician for further adjustment of blood pressure medications as advised. --Your blood and joint fluid cultures are pending at the time of discharge. Follow-up with your physician for results. Seek immediate medical attention if your symptoms reoccur or worsen Please take all medications as instructed on discharge list below. Please call if you have any questions or problems. You can reach a [facility] hospitalist on duty at [facility] 24 hours a day by calling [phone] Pending Studies at Discharge: Yes Studies:: Blood Cultures, Should Joint fluid culture Stand-Alone Forms: My [facility], Smoking Cessation Medications and DC Order Prescriptions: New lisinopril [Zestril] 5 mg Tablet 5 mg PO QAM Qty: 30 0RF amoxicillin-pot clavulanate [Augmentin] 500-125 mg tablet 1 tab PO BID Qty: 10 0RF naproxen 250 mg tablet 250 mg PO BID PRN (Reason: pain) Qty: 10 0RF Rx Instructions: Take with food famotidine [Pepcid] 20 mg tablet 20 mg PO BID Qty: 30 0RF Continued multivitamin Tablet 1 tab PO DAILY fexofenadine [Alana Allergy] 180 mg Tablet 180 mg PO DAILY aspirin 81 mg Tablet,Delayed Release (Dr/Ec) 81 mg PO DAILY omega 4-[id number]-fish oil [Fish Oil] 1,000 mg (120 mg-180 mg) Capsule 1 cap PO DAILY hydrocodone-acetaminophen 5-325 mg tablet 1 - 2 tab PO Q6H PRN (Reason: pain) Qty: 10 0RF Discontinued cephalexin 500 mg capsule 500 mg PO QID 9 Days Qty: 36 0RF Discharge Orders: Discharge Order (Routine); Ordered 04/07/23 Ordered By: Ross Valle Admission Data Admit Date/Time: 04/04/23 23:07 Attending Provider: Ross Valle Admit Provider: Arpit San Primary Care Provider: Evelio Pickard Other Providers: Arpit San ; Zenon Palomo
[2023-04-07] MEDS ORDERED: AMPICILLIN/SULBACTAM SOD 3,000 MG in 0.9 % SODIUM CHLORIDE 100 ML IV SCH (16:00)
== END 2023-04-07 14:33 | disposition home or self-care (01) | DRG 872 ==
LOC: ED 18:54 → 4W 23:07 → 2N 04-05 22:22